=== PATIENT | female | born 1985 | race Caucasian/White ===

== ENCOUNTER 2019-05-09 22:23 | Emergency (ER) | payer SELFPAY ==
[2019-05-09 22:45] VITALS: BP 113/70; PULSE 80
--- NOTE | 2019-05-09 23:23 | EDM.PDOC ---
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 Valentine is a very pleasant 33-year-old woman with a past medical history significant for anxiety and ADHD untreated while , whose LMP was on 01/02, making her 18 weeks 1 day gestation by dates, with an MALLORY of 10/09/2019. She is . She underwent an obstetric ultrasound at 7 weeks gestation, confirming a SLIUP. She now presents to the ED reporting that she has had a left pelvic pulling sensation for the past week, then developed spotting around 22:00 tonight. She subsequently passed a relatively small blood clot. She has been spotting since. She developed crampy left pelvic pain around 22:30, however, it has since ceased. No prior similar symptoms during this nor her last . She denies recent illness, such as fever, chills, cough, dyspnea, chest pain, palpitations, nausea, vomiting, constipation, diarrhea, abdominal pain, urinary symptoms, recent bloody bowel movements or black bowel movements, recent joint aches, headaches, rashes. The patient's PCP is VIN Good. Her Jv Baseball Coach is Dr. Libby Taylor. She did not receive an influenza vaccine this season, and declined an offer for one here today. Left Lower Pelvic Pain Score (Numeric/FACES): 3 - Related Data Allergies Allergy/AdvReac Type Severity Reaction Status Date / Time Sulfa (Sulfonamide Allergy Mild Hives Verified 02/10/16 08:42 Antibiotics) Home Meds: Home Meds Pnv95/Iron Fum/Folic Acid [ Caplet] 1 each PO DAILY 09/21/15 [History] Venlafaxine [Effexor] 75 mg PO DAILY 05/09/19 [History] Past Medical History : 2 Para: 1 Psychiatric History: Reports: ADHD (untreated while ), Anxiety - Past Surgical History HEENT Surgical History: Reports: Tonsillectomy Female Surgical History: Reports: LEEP, Other (See Below) (Right urethral vascular surgery. 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 ED EXAM - Physical Exam Exam: See Below Exam Limited By: No Limitations General Appearance: Alert, WD/WN, No Apparent Distress Eye Exam: Bilateral Eye: EOMI, Normal Inspection Ears: Normal External Exam, Hearing Grossly Normal Nose: Normal Inspection Throat/Mouth: Normal Inspection, Normal Lips, Normal Voice, No Airway Compromise Head: Atraumatic, Normocephalic Neck: Normal Inspection, Full Range of Motion Respiratory/Chest: No Respiratory Distress, Lungs Clear, Normal Breath Sounds, No Accessory Muscle Use Cardiovascular: Normal Peripheral Pulses, Regular Rate, Rhythm, No Edema, No Gallop, No JVD, No Murmur, No Rub GI/Abdominal Exam: Normal Bowel Sounds, Soft, Non-Tender, No Organomegaly, No Distention, No Abnormal Bruit, Mass (Gravid uterus consistent with dates, nontender) Rectal Exam: Deferred (Female) Exam: Other (Cervical os is closed, with a small amount of bleeding. Small amount of blood and small blood clots within the vagina, but no tissue. No vaginal lesions or tears. No suggestion of vaginitis or infection.) Back Exam: Normal Inspection, Full Range of Motion. No: CVA Tenderness (L), CVA Tenderness (R) Extremities: Normal Inspection, Normal Range of Motion, No Pedal Edema, Normal Capillary Refill Neurological: Alert, Oriented, Normal Cognition, No Motor/Sensory Deficits Psychiatric: Normal Affect Skin Exam: Warm, Dry, Intact, Normal Color, No Rash Course - Vital Signs Last Recorded V/S: Last Vital Signs Temp 36.9 C 05/09/19 22:43 Pulse 80 05/09/19 22:43 Resp 20 05/09/19 22:43 BP 113/70 05/09/19 22:43 Pulse Ox 98 05/09/19 22:43 - Orders/Labs/Meds Orders: Active Orders 24 hr Category Date Time Status Heart Rate [RC] Click to Edit Care 05/09/19 23:10 Active OB Ltd 1 or More Fetus [US] Stat Exams 05/09/19 23:10 Taken SCREEN [BBK] Stat Lab 05/09/19 23:20 Results PATIENT RETYPE [BBK] Routine Lab 05/10/19 00:04 Ordered RH IMMUNE GLOBULIN [BBK] Stat Lab 05/09/19 23:20 Results RHIG WORKUP, 2ND TRIMESTER [BBK] Stat Lab 05/09/19 23:20 Results Labs: Laboratory Tests 05/09/19 Range/Units 23:20 Blood Type A NEGATIVE Gel Antibody Screen Negative Rhogam Indicated Yes, baby rh unknown H - Re-Assessments/Exams Free Text/Narrative Re-Assessment/Exam: 05/09/19 23:19 As per the HPI, the patient is approximately 18 weeks 1 day gestation with her second , now experiencing left pelvic pain and spotting. heart tones are 160 bpm. I have ordered an ABO-Rh. As soon as her blood is drawn, she will be placed into the Gyne room so that I can inspect her cervix, after which she will undergo a pelvic ultrasound. 05/10/19 00:24 The patient went for ultrasound prior to the pelvic exam. Ultrasound results are still pending. On pelvic examination, the patient's cervix is closed. There is a small amount of cervical bleeding, a small amount of blood, and small blood clots in the vagina, but no tissue. 05/10/19 00:51 Obstetric ultrasound is read by vRpatricia as: 1. Single live intrauterine with a sonographic gestational age of 18 weeks 1 day. The sonographic EDC is 10/09/2019. 2. 3 cm subchorionic hemorrhage along the posterior upper Aspect [sic] of the uterus. 05/10/19 01:31 Since the patient is Rhesus factor negative, I contacted Dr. Vo at 01:27. He recommended that we proceed with giving the patient RhoGAM. 05/10/19 01:48 The above was discussed with the patient, who provided labs performed at [facility] indicating that her blood type is A+. Tabitha VENTURA was able to pull up the same report, indicating that on 12/19/2015, her blood type was A-Positive, Antibody negative. I called the lab to get an explanation for this discrepancy. I was informed that Andrea uses the tube method to measure DU, which is less accurate than the gel method, which is what our lab uses. It is more likely, therefore, that the patient's blood type is A-negative. They recommended that if in doubt, to give RhoGAM. This was discussed with the patient and her sister. She is agreeable. 05/10/19 02:57 The patient received her RhoGam injection. I will discharge her home. Departure - Departure Time of Disposition: 02:58 Disposition: Home, Self-Care 01 Condition: Good Clinical Impression: Subchorionic hemorrhage, Threatened in second trimester - Discharge Information *PRESCRIPTION DRUG MONITORING PROGRAM REVIEWED*: Not Applicable *COPY OF PRESCRIPTION DRUG MONITORING REPORT IN PATIENT DUONG: Not Applicable Referrals: Libby Taylor MD [Primary Care Provider] - Sandrita Alcantara PA-C [Physician Public Health Program Manager] - Forms: ED Department Discharge Additional Instructions: You were seen in the emergency room after spotting and passing a blood clot, with pelvic cramps, while . Workup in the ER included heart tones, which returned normal at 160 bpm, blood typing, which returned as A-Negative, and an obstetric ultrasound, which found a 3 cm subchorionic hemorrhage. As discussed, bleeding during is not considered normal, but is fairly common. This bleed does threaten your , but does not mean that you cannot go on to have an otherwise normal and delivery. Because of your blood type, you were given RhoGAM during your ER visit. We recommend that you follow-up with your Jv Baseball Coach, Dr. Libby Taylor, at the next available appointment. If any other problems, including vaginal bleeding exceeding one pad per hour for 3 hours, or if you develop lightheadedness when you stand up, please do not hesitate to return to the ER. Sepsis Event Note - Evaluation Sepsis Screening Result: No Definite Risk - Focused Exam Vital Signs: Vital Signs Temp Pulse Resp BP Pulse Ox 05/09/19 22:43 36.9 C 80 20 113/70 98 Date Exam was Performed: 05/10/19 Time Exam was Performed: 02:57 - My Orders Last 24 Hours: My Active Orders 05/09/19 23:10 Heart Rate [RC] Click to Edit OB Ltd 1 or More Fetus [US] Stat 05/09/19 23:20 SCREEN [BBK] Stat RH IMMUNE GLOBULIN [BBK] Stat RHIG WORKUP, 2ND TRIMESTER [BBK] Stat 05/10/19 00:04 PATIENT RETYPE [BBK] Routine - Assessment/Plan Last 24 Hours: My Active Orders 05/09/19 23:10 Heart Rate [RC] Click to Edit OB Ltd 1 or More Fetus [US] Stat 05/09/19 23:20 SCREEN [BBK] Stat RH IMMUNE GLOBULIN [BBK] Stat RHIG WORKUP, 2ND TRIMESTER [BBK] Stat 05/10/19 00:04 PATIENT RETYPE [BBK] Routine
--- NOTE | 2019-05-10 07:25 | US ---
Limited obstetrical ultrasound: Multiple real-time images were obtained transabdominally. Comparison: Previous obstetrical ultrasound for current is not available. presentation: Breech Placenta: Anterior with no findings of placenta previa or abruption. Amniotic fluid: FESTUS 11.9 cm There appears to be a blood clot adjacent to the posterior internal cervical os. Possible small subchorionic hemorrhage is noted posteriorly separate from this area of blood clot. Subchorionic hemorrhage does not involve the placenta. Placental length: 3.8 cm and closed. Impression: 1. Blood clot near the internal cervical os measuring about 2.8 cm in greatest size. Additional small subchorionic hemorrhage more superiorly within the posterior uterus separate from the placenta. 2. Other normal findings as noted above. Diagnostic code #3 This report was dictated in [place] Standard Time I agree with preliminary report from [facility], finalized on 05/10/19, 1:22 AM Central Time
== END 2019-05-10 03:15 | disposition home or self-care (01) ==
LOC: JD.ED 22:23
DX: O20.0 Threatened abortion (principal); O99.342 Other mental disorders complicating pregnancy, second trimester; F41.9 Anxiety disorder, unspecified; Z79.899 Other long term (current) drug therapy; Z88.2 Allergy status to sulfonamides; Z3A.18 18 weeks gestation of pregnancy
CPT/HCPCS: 36415; 76815; 85461; 86850; 86900; 86901; 99284; J2790; 99282

== ENCOUNTER 2019-05-10 09:51 | Emergency (ER) | payer SELFPAY ==
[2019-05-10 10:05] VITALS: BP 132/72; PULSE 73
--- NOTE | 2019-05-10 10:13 | EDM.PDOC ---
ED HPI GENERAL MEDICAL PROBLEM - General Chief Complaint: HEAD OF ENGLISH Problem Stated Complaint: 18 WEEKS PREG AND LEAKING FLUID Time Seen by Provider: 05/10/19 10:37 Source of Information: Reports: Patient, Family (sister) History Limitations: Reports: No Limitations - History of Present Illness INITIAL COMMENTS - FREE TEXT/NARRATIVE: 33-year-old female presents to the ED due to gaseous of clear fluid per vagina 3 since leaving the department earlier this morning. She was seen last evening through the emergency department due to bleeding per vagina. Last normal menstrual period was felt to be around 02 January 2019. Is 2 para 1 U/ S revealed 18 weeks and 1 day . She has been set for October 08. First sound done earlier this morning revealed a breech presentation. The placenta revealed no previa or abruption. Amniotic fluid was felt to be 11.9 cm. There appear to be a blood clot adjacent to the posterior internal cervical os. Possible small subchorionic hemorrhage noted posteriorly separate from this area of blood clot subchorionic hemorrhage does not involve the placenta. Placenta length with 3.8 cm and the cervix was noted to be closed. Has had very minimal bleeding per vagina. But she's had 3 large glasses of clear fluid suggesting possible amniotic fluid loss. No abdominal cramping pain. She was found to be a negative and did receive a shot of RhoGAM. Onset: Today Onset Date: 05/10/19 Onset Time: 03:00 (His past about 3 glasses of clear fluid per vagina since her 300 hours this morning.) Duration: Hour(s): Location: Reports: Other (passage of clear fluid per vagina 3 since discharge from the ED) Quality: Reports: Other Severity: Moderate (Clear fluid with no order.) Improves with: Reports: None Worsens with: Reports: None Context: Denies: Activity, Exercise, Lifting, Sick Contact, Trauma, Other Associated Symptoms: Denies: No Other Symptoms, Confusion, Chest Pain, Cough, cough w sputum, Diaphoresis, Fever/Chills, Headaches, Loss of Appetite, Malaise , Nausea/Vomiting, Seizure, Shortness of Breath, Syncope, Weakness Treatments EXCHANGE ADMINISTRATOR: Reports: Other (see below) (None.) - Related Data Allergies Allergy/AdvReac Type Severity Reaction Status Date / Time Sulfa (Sulfonamide Allergy Mild Hives Verified 05/10/19 11:21 Antibiotics) Home Meds: Home Meds Pnv95/Iron Fum/Folic Acid [ Caplet] 1 each PO DAILY 09/21/15 [History] Venlafaxine [Effexor] 75 mg PO DAILY 05/09/19 [History] Past Medical History - Past Health History Medical/Surgical History: Denies Medical/Surgical History HEAD OF ENGLISH History: Reports: Psychiatric History: Reports: ADHD (untreated while ), Anxiety - Past Surgical History HEENT Surgical History: Reports: Tonsillectomy Female Surgical History: Reports: LEEP, Other (See Below) (Right urethral vascular surgery. 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 Denies: Fever, Chills, Malaise, Weakness HEENT: Reports: No Symptoms Respiratory: Reports: No Symptoms Cardiovascular: Reports: No Symptoms Endocrine: Reports: Fatigue GI/Abdominal: Reports: Other (Was experiencing some lower abdominal cramping pain earlier but this is subsequently abated.) : Reports: Frequency, Other (Was bleeding per vagina last evening checked by ultrasound to reveal a viable estimated to be 18 weeks and 1 day. No passing gushes of fluid per vagina worrisome for amniotic fluid leak.) Musculoskeletal: Reports: Back Pain Skin: Reports: No Symptoms (Mild) Neurological: Reports: No Symptoms Psychiatric: Reports: No Symptoms Hematologic/Lymphatic: Reports: No Symptoms Immunologic: Reports: No Symptoms ED EXAM - Physical Exam Exam: See Below Exam Limited By: No Limitations General Appearance: Alert, WD/WN, Anxious (Mildly anxious.), Other ( Temperatures 36.6 heart rate is 73 and sinus respiratory 16 BP 132/72.) Eye Exam: Bilateral Eye: Normal Inspection Throat/Mouth: Normal Inspection, Normal Lips, Normal Teeth, Normal Oropharynx Respiratory/Chest: No Respiratory Distress, Lungs Clear, Normal Breath Sounds, No Accessory Muscle Use Cardiovascular: Normal Peripheral Pulses, Regular Rate, Rhythm, No Edema, No Gallop, No Murmur, No Rub GI/Abdominal Exam: Soft, Non-Tender, No Organomegaly, Other (Fundus is palpable 2 cm below the umbilical umbilicus compatible with an 18 week gestation.) Neurological: Alert, Oriented, CN II-XII Intact, Normal Cognition Psychiatric: Anxious Skin Exam: Warm (Mildly anxious.), Dry, Intact, Normal Color, No Rash Course - Vital Signs Last Recorded V/S: Last Vital Signs Temp 36.6 C 05/10/19 10:00 Pulse 73 05/10/19 10:00 Resp 16 05/10/19 10:00 BP 132/72 05/10/19 10:00 Pulse Ox - Orders/Labs/Meds Orders: Active Orders 24 hr Category Date Time Status OB Ltd 1 or More Fetus [US] Stat Exams 05/10/19 10:38 Taken - Radiology Interpretation Free Text/Narrative:: The patient will have a repeat transabdominal ultrasound to measure the amniotic fluid to make sure she is not leaking amniotic fluid at this time. - Re-Assessments/Exams Free Text/Narrative Re-Assessment/Exam: 05/10/19 11:31 transabdominal ultrasound reveals an 18 week 3 day fetus by head circumference. It is now vertex presentation. There appears to be a significant quantity of amniotic fluid no await the radiologist's report on the measurement of this. Good heart tones are appreciated. Small subchorionic hemorrhage adjacent to the cervix as noted on earlier ultrasound. Cervical canal appears to be patent and closed. 05/10/19 11:59 there is a fair amount of clear sanguinous fluid present in the posterior cul-de-sac. A sample was obtained with amnesia sure device to see if this is amniotic fluid. The blood will likely make it more alkaline. Cervical os is closed. 05/10/19 12:11 and the sugar test was faintly positive. Possibly due to blood contaminating the wound in the posterior cul-de-sac. The abdominal ultrasound report. 05/10/19 12:27 radiologist has reported on the ultrasound and he feels that the amniotic fluid volume is about the same as was one was measured earlier this morning. Not see any obvious subchorionic hemorrhage or bleeding at this time. Therefore the source of her vaginal fluid loss is a bit of a mystery. The annular fissure was faintly positive but it may be sustained from the blood that was noted in the fluid in the posterior cul-de-sac that the sample was obtained from. Cervical os is closed. Patient will take it easy today and see how things go. She has a follow-up appointment scheduled with Dr. Taylor tomorrow in the clinic. She will return to medical care if she develops any fever chills or increasing lower abdominal pain. Departure - Departure Time of Disposition: 12:24 Disposition: Home, Self-Care 01 Condition: Fair Clinical Impression: Second trimester - Discharge Information *PRESCRIPTION DRUG MONITORING PROGRAM REVIEWED*: Not Applicable *COPY OF PRESCRIPTION DRUG MONITORING REPORT IN PATIENT DUONG: Not Applicable Referrals: Libby Taylor MD [Primary Care Provider] - Forms: ED Department Discharge Additional Instructions: Evaluation the emergency room for the second time in about 12 hours in regards to no passage of clear fluid per vagina on 3 occasions since you were discharged home from the emergency room earlier this morning. Repeat ultrasound shows about the same amount of amniotic fluid that was present on the previous ultrasound with no obvious deficit. The amnio sure test was faintly positive and he could be sustained from the blood that was mixed with a clear fluid in the vagina and identified on examination. Therefore still possible that you have a pinhole in the amniotic fluid which would replace the plug in and risk of infection but it's more likely that the fluid losses from a mucous cyst that ruptured and drained. Suggest taking life real easy today with limited lifting, pushing, pulling and mostly bed rest or leg and around. Dr. Libby Taylor HEAD OF ENGLISH tomorrow as planned. Return to the ED if you develop any fever chills or bleeding per vagina enough to soak a pad per hour for 2 consecutive hours. Sepsis Event Note - Evaluation Sepsis Screening Result: No Definite Risk - Focused Exam Vital Signs: Vital Signs Temp Pulse Resp BP 05/10/19 10:00 36.6 C 73 16 132/72 Date Exam was Performed: 05/10/19 Time Exam was Performed: 12:27 - My Orders Last 24 Hours: My Active Orders 05/10/19 10:38 OB Ltd 1 or More Fetus [US] Stat - Assessment/Plan Last 24 Hours: My Active Orders 05/10/19 10:38 OB Ltd 1 or More Fetus [US] Stat
--- NOTE | 2019-05-10 12:40 | US ---
Obstetrical ultrasound: Multiple real-time images were obtained transabdominally. Comparison: Previous limited obstetrical ultrasound of 05/09/19. Dates: Current ultrasound: MALLORY 10/09/19, gestational age 18 weeks 2 days presentation: Mobile Placenta: Anterior with no findings of placental abruption or placenta previa Amniotic fluid: FESTUS 10.6 cm Previous blood clot located inferiorly by the cervix is no longer seen as was noted on prior ultrasound. Anechoic area presumably representing small subchorionic hemorrhage remains without change. No additional abnormality is appreciated. Measurements: BPD: 4.14 cm - 18 weeks 4 days Head circumference: 14.71 cm - 18 weeks 0 days Abdominal circumference: 12.84 cm - 18 weeks 3 days Femur length: 2.57 cm - 17 weeks 6 days Estimated weight: 224 g (0 lbs. 8 oz.), estimated weight at 34th percentile for age by current ultrasound Heart rate: 167 bpm Cervical length: 3.1 cm Impression: 1. Single intrauterine fetus currently mobile in presentation. Dates as noted above. 2. Blood clot seen next to the cervix on prior study is no longer present. 3. Small anechoic area within a subchorionic location remains stable most likely due to minimal subchorionic hemorrhage. 4. Nothing acute is appreciated from prior study. Diagnostic code #3 This report was dictated in [place] Standard Time
== END 2019-05-10 12:45 | disposition home or self-care (01) ==
LOC: JD.ED 09:51
DX: O20.8 Other hemorrhage in early pregnancy (principal); O99.342 Other mental disorders complicating pregnancy, second trimester; F41.9 Anxiety disorder, unspecified; F90.9 Attention-deficit hyperactivity disorder, unspecified type; Z3A.18 18 weeks gestation of pregnancy
CPT/HCPCS: 76815; 76815-26; 99282; 99283-25

== ENCOUNTER 2019-06-01 00:41 | Inpatient (IN) | payer OTHER, MEDICAID ==
[2019-06-01] MEDS ORDERED: Misoprostol 200 MCG Tab ONE (01:11)
[2019-06-01] MEDS ORDERED: Misoprostol 100 MCG Tab PO ONE (01:16)
[2019-06-01] MEDS: Lactated Ringers 1,000 ML IV ONE ×2 (01:50→03:14)
[2019-06-01] MEDS ORDERED: Oxytocin/Lactated Ringers 10 UNIT/1,000 ML BAG IV ONE (01:51)
[2019-06-01] MEDS ORDERED: Oxytocin/Lactated Ringers 10 UNIT/1,000 ML BAG IV SCH (02:00)
[2019-06-01] MEDS ORDERED: Ibuprofen 600 MG Tab PO PRN (02:04)
[2019-06-01] MEDS ORDERED: Acetaminophen 325 MG Tab PO PRN (02:04)
[2019-06-01] MEDS ORDERED: Witch Hazel Medicated Pads 40/Jar TOP PRN (02:04)
--- NOTE | 2019-06-01 02:06 | PCM.LDHP ---
L&D History of Present Illness - General Date of Service: 06/01/19 Admit Problem/Dx: Admission Diagnosis/Problem Admission Diagnosis/Problem Source of Information: Patient History Limitations: Reports: No Limitations - History of Present Illness Introduction:: Patient is a 33-year-old G2 now [id number] who called in to labor and delivery about 30 minutes prior to presentation with concerns of cramping in setting of known previable rupture of membranes which occurred at 18 weeks. Currently 21 weeks and 3 days. By time presented to labor and delivery was feeling more pressure and delivered shortly after being admitted to her room. Currently feeling shocked but physically okay. No significant pain. 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: : 2 Para: 2 (1 living child ) LMP (Approximate): Other (See Below) (immediately ) Psychiatric History: Reports: ADHD (untreated while ), Anxiety - Past Surgical History HEENT Surgical History: Reports: Tonsillectomy Female Surgical History: Reports: LEEP, Other (See Below) (Ureteral reimplantation) Social & Family History - Family History Family Medical History: Noncontributory - Tobacco Use Smoking Status *Q: Never Smoker - Caffeine Use Caffeine Use: Reports: Coffee, Soda, Tea - Alcohol Use Alcohol Use History: No - Recreational Drug Use Recreational Drug Use: No - Living Situation & Occupation Living situation: Reports: Single, with Family (Daughter) 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) H&P Review of Systems - Review of Systems: Review Of Systems: See Below General: Reports: No Symptoms Pulmonary: Reports: No Symptoms Cardiovascular: Reports: No Symptoms Gastrointestinal: Reports: Abdominal Pain (mild cramping) Genitourinary: Reports: No Symptoms Musculoskeletal: Reports: No Symptoms Psychiatric: Reports: No Symptoms Neurological: Reports: No Symptoms L&D Exam - Exam Exam: See Below - Exam General: Alert, Oriented, Cooperative Lungs: Clear to Auscultation, Normal Respiratory Effort Cardiovascular: Regular Rate, Regular Rhythm GI/Abdominal Exam: Soft, Non-Tender Genitourinary: Vaginal bleeding (marked ) Extremities: Normal Inspection Skin: Warm, Dry, Intact Psychiatric: Other (tearful ) - Patient Data Result Diagrams: 06/01/19 14:22 - Problem List (1) 21 weeks gestation of SNOMED Code(s): 98740630 ICD Code: Z3A.21 - 21 WEEKS GESTATION OF Status: Acute (2) premature rupture of membranes SNOMED Code(s): 899868389, 801318252 ICD Code: O42.919 - PRETRM AILYN ROM, UNSP TIME BETW RUPT AND ONST LABR, UNSP TRI Status: Acute Qualifiers: PROM onset of labor timing: unspecified duration between rupture of membranes and onset of labor Qualified Code(s): O42.919 - premature rupture of membranes, unspecified as to length of time between rupture and onset of labor, unspecified trimester (3) Vaginal delivery SNOMED Code(s): 768647780 ICD Code: O80 - ENCOUNTER FOR FULL-TERM UNCOMPLICATED DELIVERY Status: Acute (4) hemorrhage SNOMED Code(s): 94306595 ICD Code: O72.1 - OTHER IMMEDIATE HEMORRHAGE Status: Acute Qualifiers: hemorrhage type: unspecified Qualified Code(s): O72.1 - Other immediate hemorrhage Problem List Initiated/Reviewed/Updated: Yes Orders Last 24hrs: Active Orders 24 hr Category Date Time Status Activity as Tolerated [RC] PER UNIT ROUTINE Care 06/01/19 02:04 Ordered Vital Signs [RC] ASDIRECTED Care 06/01/19 02:04 Ordered Regular Diet [DIET] Diet 06/01/19 Breakfast Ordered CBC WITH AUTO DIFF [HEME] Stat Lab 06/01/19 01:38 Ordered FIBRINOGEN [COAG] Stat Lab 06/01/19 01:38 Ordered INR,PT,PROTHROMBIN TIME [COAG] Stat Lab 06/01/19 01:38 Ordered PTT,PARTIAL THROMBOPLSTIN TIME [COAG] Stat Lab 06/01/19 01:38 Ordered TYPE AND SCREEN [BBK] Stat Lab 06/01/19 01:49 Ordered Acetaminophen [Tylenol] Med 06/01/19 02:04 Ordered 650 mg PO Q4H PRN Ibuprofen [Motrin] Med 06/01/19 02:04 Ordered 600 mg PO Q6H PRN Lactated Ringers [Ringers, Lactated] 1,000 ml Med 06/01/19 02:00 Active IV ONETIME Oxytocin/Lactated Ringers [Pitocin in LR 10 Units/1,000 Med 06/01/19 02:00 Active ML] 10 unit in 1,000 ml IV ASDIRECTED Venlafaxine Med 06/01/19 09:00 Ordered 75 mg PO DAILY Witch Ibeth [Tucks] Med 06/01/19 02:04 Ordered 1 pad TOP ASDIRECTED PRN Assess Lochia [WOMSER] Per Unit Routine Oth 06/01/19 02:04 Ordered Heat Therapy [OM.PC] PRN Oth 06/01/19 02:15 Ordered Heat Therapy [OM.PC] PRN Oth 06/02/19 02:15 Ordered Ice Therapy [OM.PC] Per Unit Routine Oth 06/01/19 02:04 Ordered Perineal Care [OM.PC] Per Unit Routine Oth 06/01/19 02:04 Ordered Peripheral IV Discontinue [OM.PC] Routine Oth 06/01/19 02:04 Ordered Sitz Bath [OM.PC] Per Unit Routine Oth 06/01/19 02:04 Ordered Resuscitation Status Routine Resus Stat 06/01/19 02:04 Ordered Medication Orders Acetaminophen (Tylenol) 650 mg PO Q4H PRN PRN Reason: mild pain or fever Oxytocin/Lactated Ringer's (Pitocin In Lr 10 Units/1,000 Ml) 10 unit in 1,000 mls @ 500 mls/hr IV ASDIRECTED LOBO; Protocol Last Admin: 06/01/19 01:59 Dose: 500 mls/hr Lactated Ringer's (Ringers, Lactated) 1,000 mls @ 999 mls/hr IV ONETIME ONE Stop: 06/01/19 03:00 Ibuprofen (Motrin) 600 mg PO Q6H PRN PRN Reason: Mild pain or fever Non-Formulary Medication (Venlafaxine) 75 mg PO DAILY [facility] Witch Ibeth (Tucks) 1 pad TOP ASDIRECTED PRN PRN Reason: Perineal Comfort Measure Assessment/Plan Comment:: Patient delivered shortly on admission to her room. Currently nursing staff of clamped and cut cord. Her daughter, Monica, currently skin to skin with mother. Baby does still have a heartbeat present. Reviewed with this early gestational age no resuscitation is performed. Patient tearful but does understand this recommendation. Patient given 400 mcg of buccal Cytotec while I was in route. Currently with about 200 cc of blood on ale-pad underneath her. Light traction placed on umbilical cord with no delivery of placenta. Changed out chux underneath patient. While waiting for placenta to deliver approximately another 700 cc of clot and blood noted. This was confirmed as nursing staff did weigh pad. New chux placed underneath patient. IV placed. Stat CBC, PT, PTT, Fibrinogen, T&S performed. Did discuss with patient potential for emergent D&C. Placenta then did deliver within a short time of this discussion with approximately another 200 cc of clot. Patient given methergine 0.2 mg IM and IV pitocin following delivery of placenta. Will keep patient in house to allow bonding with baby and for further medical observation given hemorrhage Libby Taylor MD Called by nursing staff about 1.5 hours after delivery that patient with larger clot when up to restroom. Order given for Tranexamic acid. Repeat methegine dose 3 hours after 1st dose. Repeat CBC about 12 hours post delivery.
[2019-06-01] MEDS ORDERED: Methylergonovine 0.2 MG/1 ML Amp IM STA (02:08)
[2019-06-01] MEDS ORDERED: Ammonia Inhalant Amp ONE (02:43)
[2019-06-01] MEDS ORDERED: Ondansetron 8 MG in Sodium Chloride 0.9% 50 ML IV ONE (04:03)
[2019-06-01] MEDS ORDERED: Methylergonovine 0.2 MG/1 ML Amp IM SCH (06:00)
--- NOTE | 2019-06-01 07:13 | PCM.PN ---
- General Info Date of Service: 06/01/19 Functional Status: Reports: Pain Controlled - Review of Systems General: Reports: No Symptoms Pulmonary: Reports: No Symptoms Cardiovascular: Reports: No Symptoms Gastrointestinal: Reports: Abdominal Pain (cramping with medications ) Genitourinary: Reports: Other (bleeding less than overnight ) Musculoskeletal: Reports: No Symptoms Neurological: Reports: No Symptoms - Patient Data Vitals - Most Recent: Last Vital Signs Temp 36.9 C 06/01/19 03:57 Pulse 76 06/01/19 03:57 Resp 16 06/01/19 03:57 BP 121/71 06/01/19 03:57 Pulse Ox 98 06/01/19 03:57 Weight - Most Recent: 75.296 kg I&O - Last 24 Hours: Intake & Output 05/31/19 06/01/19 06/01/19 22:59 06:59 14:59 Intake Total 3050 Balance 3050 Lab Results Last 24 Hours: Laboratory Results - last 24 hr 06/01/19 06/01/19 06/01/19 Range/Units 02:03 02:03 02:03 WBC 14.48 H (3.98-10.04) K/mm3 RBC 3.08 L (3.98-5.22) M/mm3 Hgb 9.7 L D (11.2-15.7) gm/dl Hct 28.6 L (34.1-44.9) % MCV 92.9 (79.4-94.8) fl MCH 31.5 (25.6-32.2) pg MCHC 33.9 (32.2-35.5) g/dl RDW Std Deviation 41.1 (36.4-46.3) fL Plt Count 237 (182-369) K/mm3 MPV 10.2 (9.4-12.3) fl Neut % (Auto) 81.9 H (34.0-71.1) % Lymph % (Auto) 9.9 L (19.3-51.7) % [place] % (Auto) 5.7 (4.7-12.5) % Eos % (Auto) 2.1 (0.7-5.8) Baso % (Auto) 0.1 (0.1-1.2) % Neut # (Auto) 11.87 H (1.56-6.13) K/mm3 Lymph # (Auto) 1.43 (1.18-3.74) K/mm3 [place] # (Auto) 0.82 H (0.24-0.36) K/mm3 Eos # (Auto) 0.30 (0.04-0.36) K/mm3 Baso # (Auto) 0.02 (0.01-0.08) K/mm3 Manual Slide Review Abnormal smear PT 10.4 (9.7-12.0) SECONDS INR 0.95 APTT 29 (22-31) SECONDS Fibrinogen 387 (187-446) mg/dL Blood Type A NEGATIVE Gel Antibody Screen Positive Med Orders - Current: Current Medications Acetaminophen (Tylenol) 650 mg PO Q4H PRN PRN Reason: mild pain or fever Oxytocin/Lactated Ringer's (Pitocin In Lr 10 Units/1,000 Ml) 10 unit in 1,000 mls @ 500 mls/hr IV ASDIRECTED [facility]; Protocol Last Admin: 06/01/19 01:59 Dose: 500 mls/hr Ibuprofen (Motrin) 600 mg PO Q6H PRN PRN Reason: Mild pain or fever Non-Formulary Medication (Venlafaxine) 75 mg PO DAILY [facility] Migdalia Cristina (Tucks) 1 pad TOP ASDIRECTED PRN PRN Reason: Perineal Comfort Measure Discontinued Medications Ammonia (Aromatic Spirit) (Ammonia Aromatic Inhalant) Confirm Administered Dose 1 ampule .ROUTE .STK-MED ONE Stop: 06/01/19 02:44 Last Admin: 06/01/19 03:54 Dose: Not Given Oxytocin/Lactated Ringer's (Pitocin In Lr 10 Units/1,000 Ml) Confirm Administered Dose 10 unit in 1,000 mls @ as directed IV .STK-MED ONE Stop: 06/01/19 01:52 Last Admin: 06/01/19 03:54 Dose: Not Given Lactated Ringer's (Ringers, Lactated) 1,000 mls @ 999 mls/hr IV ONETIME ONE Stop: 06/01/19 03:00 Last Admin: 06/01/19 03:14 Dose: 999 mls/hr Ondansetron HCl 8 mg/ Sodium (Chloride) 54 mls @ 100 mls/hr IV ONETIME ONE Stop: 06/01/19 04:35 Last Admin: 06/01/19 04:18 Dose: 100 mls/hr Methylergonovine Maleate (Methergine) 0.2 mg IM Q4H STA Stop: 06/01/19 02:09 Last Admin: 06/01/19 02:14 Dose: 0.2 mg Methylergonovine Maleate (Methergine) 0.2 mg IM Q4H [facility] Last Admin: 06/01/19 05:37 Dose: 0.2 mg Misoprostol (Cytotec) Confirm Administered Dose 600 mcg .ROUTE .STK-MED ONE Stop: 06/01/19 01:12 Last Admin: 06/01/19 01:16 Dose: 600 mcg Misoprostol (Cytotec) 600 mcg PO ONETIME ONE Stop: 06/01/19 01:17 Last Admin: 06/01/19 03:54 Dose: Not Given Tranexamic Acid (Cyklokapron) 1,000 mg IVPUSH ONETIME ONE Stop: 06/01/19 02:56 Last Admin: 06/01/19 03:03 Dose: 1,000 mg Tranexamic Acid (Cyklokapron) Confirm Administered Dose 1,000 mg .ROUTE .STK- MED ONE Stop: 06/01/19 02:58 Last Admin: 06/01/19 03:53 Dose: Not Given - Exam General: Alert, Oriented, Cooperative GI/Abdominal Exam: Soft, Non-Tender Back Exam: Normal Inspection Sepsis Event Note - Evaluation Sepsis Screening Result: No Definite Risk - Focused Exam Vital Signs: Vital Signs Temp Pulse Resp BP Pulse Ox 06/01/19 03:57 36.9 C 76 16 121/71 98 06/01/19 03:49 113/81 06/01/19 03:18 107/72 06/01/19 02:45 129/78 06/01/19 01:43 37.0 C 79 16 111/76 96 Date Exam was Performed: 06/02/19 Time Exam was Performed: 11:02 - Problem List & Annotations (1) 21 weeks gestation of SNOMED Code(s): 29928434 Code(s): Z3A.21 - 21 WEEKS GESTATION OF Status: Acute (2) premature rupture of membranes SNOMED Code(s): 884112991, 212499815 Code(s): O42.919 - PRETRM AILYN ROM, UNSP TIME BETW RUPT AND ONST LABR, UNSP TRI Status: Acute Qualifiers: PROM onset of labor timing: unspecified duration between rupture of membranes and onset of labor Qualified Code(s): O42.919 - premature rupture of membranes, unspecified as to length of time between rupture and onset of labor, unspecified trimester (3) Vaginal delivery SNOMED Code(s): 540247653 Code(s): O80 - ENCOUNTER FOR FULL-TERM UNCOMPLICATED DELIVERY Status: Acute (4) hemorrhage SNOMED Code(s): 10818917 Code(s): O72.1 - OTHER IMMEDIATE HEMORRHAGE Status: Acute Qualifiers: hemorrhage type: unspecified Qualified Code(s): O72.1 - Other immediate hemorrhage - Problem List Review Problem List Initiated/Reviewed/Updated: Yes - My Orders Last 24 Hours: My Active Orders 06/01/19 02:00 Oxytocin/Lactated Ringers [Pitocin in LR 10 Units/1,000 ML] 10 unit in 1,000 ml IV ASDIRECTED 06/01/19 02:03 ANTIBODY IDENTIFICATION [BBK] Stat TYPE AND SCREEN [BBK] Stat 06/01/19 02:04 Activity as Tolerated [RC] PER UNIT ROUTINE Vital Signs [RC] 09,15,21,03 Acetaminophen [Tylenol] 650 mg PO Q4H PRN Ibuprofen [Motrin] 600 mg PO Q6H PRN Witch Ibeth [Tucks] 1 pad TOP ASDIRECTED PRN Assess Lochia [WOMSER] Per Unit Routine Ice Therapy [OM.PC] Per Unit Routine Perineal Care [OM.PC] Per Unit Routine Peripheral IV Discontinue [OM.PC] Routine Sitz Bath [OM.PC] Per Unit Routine Resuscitation Status Routine 06/01/19 02:15 Heat Therapy [OM.PC] PRN 06/01/19 06:44 Patient Status [ADT] Routine 06/01/19 09:00 Venlafaxine 75 mg PO DAILY 06/01/19 14:00 CBC W/O DIFF,HEMOGRAM [HEME] Timed 06/01/19 Breakfast Regular Diet [DIET] 06/02/19 02:15 Heat Therapy [OM.PC] PRN - Assessment Assessment:: PPD#0 - Plan Plan:: * Blood count pending this PM. If appropriate will discharge to home * Patient actually Rh positive (see [facility] [place] scanned report - no need for Rhogam) * Patient currently finishing collecting mementos, pictures, etc for her baby * Reviewed follow up plan. Encouraged patient to call in with any concerns.
[2019-06-01] MEDS ORDERED: Venlafaxine 75 MG Cap.ER PO SCH (11:00)
[2019-06-01 15:03] VITALS: BP 111/71; PULSE 81
--- NOTE | 2019-06-02 11:07 | PCM.DCSUM1 ---
Discharge Summary - Discharge Data Discharge Date: 06/01/19 Discharge Disposition: Home, Self-Care 01 Condition: Good - Referral to Home Health Primary Care Physician: Libby Taylor MD - Discharge Diagnosis/Problem(s) (1) 21 weeks gestation of SNOMED Code(s): 72276945 ICD Code: Z3A.21 - 21 WEEKS GESTATION OF Status: Acute (2) premature rupture of membranes SNOMED Code(s): 799385823, 205195810 ICD Code: O42.919 - PRETRM AILYN ROM, UNSP TIME BETW RUPT AND ONST LABR, UNSP TRI Status: Acute Qualifiers: PROM onset of labor timing: unspecified duration between rupture of membranes and onset of labor Qualified Code(s): O42.919 - premature rupture of membranes, unspecified as to length of time between rupture and onset of labor, unspecified trimester (3) Vaginal delivery SNOMED Code(s): 998557856 ICD Code: O80 - ENCOUNTER FOR FULL-TERM UNCOMPLICATED DELIVERY Status: Acute (4) hemorrhage SNOMED Code(s): 79989482 ICD Code: O72.1 - OTHER IMMEDIATE HEMORRHAGE Status: Acute Qualifiers: hemorrhage type: unspecified Qualified Code(s): O72.1 - Other immediate hemorrhage - Patient Summary/Data Complications: None Consults: None Recommended Follow-up Testing/Procedures: Follow up in 2-3 weeks Hospital Course: 33-year-old who presented at 21-3/7 weeks with abdominal cramping. Patient had experienced previable rupture of membranes at approximately 18 weeks gestation. Had been having on and off bleeding the weeks following diagnosis of rupture of membranes. Presented day of admission for concerns of cramping. Delivered her daughter shortly after admission. Baby alive on delivery, but given early gestational age no resuscitation performed. She did pass shortly thereafter. Patient with large hemorrhage, close to approximately 1 L, following delivery. This is managed with a combination of Cytotec, Methergine, IV Pitocin, tranexamic acid. Blood count appropriate following delivery. Discharge to home day 0 after approximately 12 hours of monitoring - Patient Instructions Diet: Regular Diet as Tolerated Activity: As Tolerated Activity, Other: Pelvic rest for about 6 weeks Driving: May Drive Today Showering/Bathing: May Shower Showering/Bathing, Other: May bathe Notify Provider of: Fever, Increased Pain, Swelling and Redness, Drainage, Nausea and/or Vomiting - Discharge Plan *PRESCRIPTION DRUG MONITORING PROGRAM REVIEWED*: No *COPY OF PRESCRIPTION DRUG MONITORING REPORT IN PATIENT DUONG: No Home Medications: Home Meds Pnv95/Iron Fum/Folic Acid [ Caplet] 1 each PO DAILY 09/21/15 [History] Venlafaxine [Effexor] 75 mg PO DAILY 05/09/19 [History] Ibuprofen [Motrin] 600 mg PO Q6H PRN tablet 06/01/19 [Rx] Patient Handouts: Care After Vaginal Delivery, Vaginal Delivery, Loss, Care After Referrals: Libby Taylor MD [Primary Care Provider] - - Discharge Summary/Plan Comment DC Time >30 min.: No - Patient Data Vitals - Most Recent: Last Vital Signs Temp 36.8 C 06/01/19 15:00 Pulse 81 06/01/19 15:00 Resp 16 06/01/19 15:00 BP 111/71 06/01/19 15:00 Pulse Ox 98 06/01/19 15:00 Weight - Most Recent: 75.296 kg
== END 2019-06-01 16:30 | disposition home or self-care (01) | DRG 805 ==
LOC: JD.OBCHECK 00:41 → JD.OB 00:44 → JD.OBCHECK 06:44 → JD.OB 06:44
PROVIDERS: ADMIT Obstetrics & Gynecology; ATTEND Obstetrics & Gynecology
PROC: 10E0XZZ Delivery of Products of Conception, External Approach (ICD-10-PCS; principal; 2019-06-01)
DX: O42.112 Preterm premature rupture of membranes, onset of labor more than 24 hours following rupture, second trimester (principal); O60.12X0 Preterm labor second trimester with preterm delivery second trimester, not applicable or unspecified; Z37.0 Single live birth; O72.1 Other immediate postpartum hemorrhage; Z90.89 Acquired absence of other organs; Z3A.21 21 weeks gestation of pregnancy; Z79.899 Other long term (current) drug therapy; Z88.2 Allergy status to sulfonamides
CPT/HCPCS: 36415; 59409; 85025; 85027; 85384; 85610; 85730; 86850; 86870; 86900; 86901; A9270-GY; J2210; J2405; J2590; J7050; J7120